=== PATIENT | male | born 1980 | race Caucasian/White ===

== ENCOUNTER 2022-02-27 18:19 | Inpatient (IN) | payer MEDICAID, OTHER ==
[~2022-02-27] VITALS: Ht 172.7 cm; Wt 69.0 kg
[2022-02-27] MEDS ORDERED: SODIUM CHLORIDE 0.9% 1,000 ML IV ONE (18:30)
[2022-02-27] MEDS ORDERED: LevETIRAcetam 1,000 MG in DEXTROSE 5%-WATER 100 ML IV ONE (18:30)
[2022-02-27 18:38] LABS: ABG BASE EXCESS -15.9 mmol/L (-2.0-3.0); ABG CARBOXYHEMOGLOBIN 0.2 % (0.0-1.5); ABG HCO3 12.8 mmol/L (22.0-26.0); ABG METHEMOGLOBIN 0.3 % (0.0-1.5); ABG OXYGEN CONTENT 22.4 mL/dL (15.0-23.0); ABG OXYGEN SATURATION 98.2 % (95.0-98.0); ABG OXYHEMOGLOBIN 97.7 % (94.0-100.0); ABG PCO2 51 mmHg (35-45); ABG PH 7.067 (7.35-7.450); ABG TOTAL HEMOGLOBIN 16.1 G/dL (12.0-18.0); PO2, ARTERIAL BG 159.8 mmHg (88.0-96.0); SITE, BLOOD GAS RT RADIAL; SOURCE, BLOOD GAS ARTERIAL; TEMPERATURE, FAHRENHEIT, BG 98.6 FAHREN (96.0-98.6)
[2022-02-27 18:39] LABS: PEEP,BG 5 cm H2O; VT, ABG 400 ml
[2022-02-27] MEDS: PROPOFOL 1000 MG/ISO-OSM 100 ML IV PRN ×2 (18:45→19:00)
[2022-02-27 18:53] LABS: COVID AG,FIA SOURCE NASOPHARYNGEAL
[2022-02-27 18:54] LABS: BASOPHILS % (AUTO) 0.6 % (0.0-2.0); EOSINOPHILS % (AUTO) 0.1 % (1.0-6.0); HEMATOCRIT 48.2 % (41-53); HEMOGLOBIN 16.2 g/dL (13.5-17.5); LYMPHOCYTES # (AUTO) 1.1 K/uL (1.0-4.8); LYMPHOCYTES % (AUTO) 7.1 % (22.0-44.0); MEAN CORPUSCULAR HEMOGLOBIN 29.7 pg (26.0-34.0); MEAN CORPUSCULAR HGB CONC 33.6 G/dL (31.0-37.0); MEAN CORPUSCULAR VOLUME 89 fL (80-100); MONOCYTES # (AUTO) 0.4 K/uL (0.1-1.0); MONOCYTES % (AUTO) 2.6 % (2.0-9.0); NEUTROPHILS # (AUTO) 13.9 K/uL (1.8-7.7); PLATELET COUNT (AUTO) 396 K/uL (150-450); RED BLOOD CELL COUNT(AUTO) 5.45 MIL/uL (4.50-5.90); RED CELL DISTRIBUTION WIDTH 13.5 % (11.5-14.5)
[2022-02-27 19:00] LABS: APPEARANCE,URINE CLEAR (CLEAR); BILIRUBIN,URINE NEGATIVE (NEGATIVE); GLUCOSE, URINE (UA) >=1000 mg/dL (NEGATIVE); KETONES,URINE 40-60 mg/dL (NEGATIVE); LEUKOCYTE ESTERASE ,URINE NEGATIVE (NEGATIVE); NITRATE,URINE NEGATIVE (NEGATIVE); OCCULT BLOOD,URINE NEGATIVE (NEGATIVE); PROTEIN,URINE NEGATIVE (NEGATIVE); SPECIFIC GRAVITIY, URINE 1.029 (1.003-1.030); UROBILINOGEN,URINE <=1.0 mg/dL (<=1.0)
[2022-02-27 19:05] LABS: PROTHROMBIN TIME 10.3 SEC (9.4-11.6)
[2022-02-27 19:07] LABS: AMPHET/METH SCREEN,URINE POSITIVE (NEGATIVE); BACTERIA,URINE None Seen /HPF (None Seen); BARBITURATE SCREEN, URINE NEGATIVE (NEGATIVE); BENZODIAZEPINES SCREEN,URINE NEGATIVE (NEGATIVE); CANNABINOID SCREEN,URINE NEGATIVE (NEGATIVE); COCAINE SCREEN,URINE NEGATIVE (NEGATIVE); METHADONE SCREEN, URINE NEGATIVE (NEGATIVE); OPIATE SCREEN,URINE NEGATIVE (NEGATIVE); RBC,URINE 0-2 /HPF (0-2); SQUAMOUS EPITHELIAL CELL,UR Rare /LPF (None Seen); WBC,URINE 0-2 /HPF (0-5)
[2022-02-27 19:09] LABS: PHENCYCLIDINE SCREEN,URINE NEGATIVE (NEGATIVE)
[2022-02-27 19:10] LABS: NEUTROPHILS % (AUTO) 89.6 % (40.0-70.0)
[2022-02-27 19:12] LABS: PLATELET MORPHOLOGY COMMENT LARGE PLTS PRESENT
[2022-02-27] MEDS ORDERED: ROCURONIUM BROMIDE 10 MG/ML 5 ML VIAL IVP ONE (19:15)
[2022-02-27] MEDS ORDERED: ETOMIDATE 2 MG/ML 10 ML VIAL IVP ONE (19:15)
[2022-02-27] MEDS ORDERED: PIPERACILLIN SODIUM/TAZOBACTAM 4.5 GM in DEXTROSE 5%-WATER 100 ML IV ONE (19:15)
[2022-02-27 19:20] LABS: ACETONE,BLOOD 1:16 (NEGATIVE)
[2022-02-27 19:21] LABS: B-TYPE NATRIURETIC PEPTIDE 13 pg/mL (0-100)
[2022-02-27 19:26] LABS: ALANINE AMINOTRANSFERASE 31 U/L (12-78); ALBUMIN 3.5 g/dL (3.4-5.0); ALKALINE PHOSPHATASE 155 U/L (46-116); ANION GAP 20 mmol/L (8-16); ASPARTATE AMINOTRANSFERASE 14 U/L (15-37); BILIRUBIN,TOTAL 0.3 mg/dL (0.1-1.0); CALCIUM, TOTAL 9.3 mg/dL (8.8-10.5); CARBON DIOXIDE 17 mmol/L (22-29); CHLORIDE 97 mmol/L (98-107); CREATINE KINASE, TOTAL ONLY 128 U/L (39-308); POTASSIUM 5.5 mmol/L (3.5-5.1); SODIUM SERUM 134 mmol/L (136-145); TOTAL PROTEIN, SERUM 8.1 g/dL (6.4-8.2); UREA NITROGEN, BLOOD 22 mg/dL (7-18)
[2022-02-27 19:30] LABS: GLOMERULAR FILTR. RATE CALC > 60 mL/min (>60); GLUCOSE,RANDOM 717 mg/dL (70-110)
[2022-02-27] MEDS ORDERED: DEXTROSE 50%-WATER 25 GM/50 ML SYRINGE IVP PRN ×2 (19:30→20:00)
[2022-02-27] MEDS ORDERED: DEXTROSE 5%-0.45% SODIUM CHL 1,000 ML IV PRN (19:30)
[2022-02-27] MEDS ORDERED: MIDAZOLAM HCL 100 MG in SODIUM CHLORIDE 0.9% 180 ML IV PRN (19:30)
[2022-02-27] MEDS ORDERED: POTASSIUM CHLORIDE 40 MEQ in SODIUM CHLORIDE 0.45% 1,000 ML IV PRN ×2 (19:30→20:00)
[2022-02-27] MEDS ORDERED: POTASSIUM CHL 20 MEQ/0.45% NS 1,000 ML IV PRN ×2 (19:30→20:00)
[2022-02-27] MEDS ORDERED: SODIUM CHLORIDE 0.45% 1,000 ML IV PRN ×2 (19:30→20:00)
[2022-02-27] MEDS ORDERED: INSULIN REGULAR, HUMAN 100 UNITS/ML IVP PRN ×2 (19:30→20:00)
[2022-02-27] MEDS ORDERED: SODIUM CHLORIDE 0.9% 1,000 ML IV SCH (19:30)
[2022-02-27] MEDS ORDERED: INSULIN REGULAR, HUMAN 100 UNITS/ML IVP ONE ×2 (19:30→20:00)
[2022-02-27] MEDS ORDERED: INSULIN REGULAR, HUMAN 100 UNITS in SODIUM CHLORIDE 0.9% 99 ML IV PRN ×4 (19:30→20:00)
[2022-02-27 19:44] LABS: AMMONIA 22 umol/L (11-32)
[2022-02-27] MEDS: SODIUM CHLORIDE 0.9% 1,000 ML IV SCH (20:00)
[2022-02-27] MEDS ORDERED: MIDAZOLAM HCL 5 MG/ML VIAL IVP ONE (20:00)
[2022-02-27 20:37] LABS: BASOPHILS % (AUTO) 0.3 % (0.0-2.0); EOSINOPHILS % (AUTO) 0.1 % (1.0-6.0); HEMATOCRIT 41.2 % (41-53); HEMOGLOBIN 13.8 g/dL (13.5-17.5); LYMPHOCYTES % (AUTO) 4.8 % (22.0-44.0); MEAN CORPUSCULAR HEMOGLOBIN 29.2 pg (26.0-34.0); MEAN CORPUSCULAR HGB CONC 33.4 G/dL (31.0-37.0); MEAN CORPUSCULAR VOLUME 87 fL (80-100); MONOCYTES # (AUTO) 0.7 K/uL (0.1-1.0); MONOCYTES % (AUTO) 3.3 % (2.0-9.0); NEUTROPHILS # (AUTO) 18.5 K/uL (1.8-7.7); PLATELET COUNT (AUTO) 426 K/uL (150-450); RED BLOOD CELL COUNT(AUTO) 4.72 MIL/uL (4.50-5.90); RED CELL DISTRIBUTION WIDTH 13.6 % (11.5-14.5)
[2022-02-27 20:39] LABS: NEUTROPHILS % (AUTO) 91.5 % (40.0-70.0)
[2022-02-27] MEDS ORDERED: CHLORHEXIDINE GLUCONATE 0.12% 15 ML UDCUP ORAL RINSE MM SCH (21:00)
[2022-02-27 21:01] LABS: GLUCOSE,POINT OF CARE 434 MG/DL (70-110)
[2022-02-27 21:03] LABS: ANION GAP 20 mmol/L (8-16); CALCIUM, TOTAL 10.2 mg/dL (8.8-10.5); CARBON DIOXIDE 17 mmol/L (22-29); CHLORIDE 100 mmol/L (98-107); CREATININE 1.17 mg/dL (0.60-1.30); PHOSPHORUS 4.9 mg/dL (2.5-4.9); POTASSIUM 4.6 mmol/L (3.5-5.1); SODIUM SERUM 137 mmol/L (136-145); UREA NITROGEN, BLOOD 22 mg/dL (7-18)
[2022-02-27 21:05] LABS: GLOMERULAR FILTR. RATE CALC > 60 mL/min (>60); GLUCOSE,RANDOM 541 mg/dL (70-110)
[2022-02-27] MEDS ORDERED: PHENYLEPHRINE 200 MG/D5%-WATER 250 ML IV PRN (21:30)
[2022-02-27] MEDS ORDERED: IOHEXOL 350 MG/ML 100 ML VIAL ONE (21:30)
[2022-02-27] MEDS ORDERED: SODIUM CHLORIDE 0.9% 100 ML ONE (21:30)
[2022-02-27 21:35] LABS: ABG BASE EXCESS -11.6 mmol/L (-2.0-3.0); ABG CARBOXYHEMOGLOBIN 0.3 % (0.0-1.5); ABG HCO3 16.5 mmol/L (22.0-26.0); ABG METHEMOGLOBIN 0.1 % (0.0-1.5); ABG OXYGEN CONTENT 20.4 mL/dL (15.0-23.0); ABG OXYGEN SATURATION 95.5 % (95.0-98.0); ABG OXYHEMOGLOBIN 95.1 % (94.0-100.0); ABG PCO2 31 mmHg (35-45); ABG PH 7.299 (7.35-7.450); ABG TOTAL HEMOGLOBIN 15.2 G/dL (12.0-18.0); PO2, ARTERIAL BG 85.1 mmHg (88.0-96.0); SOURCE, BLOOD GAS ARTERIAL; TEMPERATURE, FAHRENHEIT, BG 98.6 FAHREN (96.0-98.6)
[2022-02-27 21:36] LABS: O2 DEVICE,BLOOD GAS VENTILATOR (ROOM AIR); PEEP,BG 5 cm H2O; SITE, BLOOD GAS RT FEMORAL; VT, ABG 400 ml
[2022-02-27] MEDS ORDERED: PHENYLEPHRINE HCL IN 0.9% NACL 400 MCG/10 ML SYRINGE IVP ONE ×2 (21:44→22:00)
[2022-02-27] MEDS: ACETAMINOPHEN 325 MG TABLET PO PRN (21:45)
[2022-02-27 21:57] LABS: LACTIC ACID 3.1 mmol/L (0.4-2.0)
[2022-02-27] MEDS: DEXTROSE 5%-0.45% SODIUM CHL 1,000 ML IV PRN ×2 (22:35→23:46)
[2022-02-27 23:50] LABS: GLUCOSE,POINT OF CARE 183 MG/DL (70-110)
[2022-02-27 23:50] LABS: GLUCOSE,POINT OF CARE 157 MG/DL (70-110)
[2022-02-28 00:46] LABS: GLUCOSE,POINT OF CARE 111 MG/DL (70-110)
[2022-02-28] MEDS: DEXTROSE 5%-0.45% SODIUM CHL 1,000 ML IV PRN (00:50)
[2022-02-28 00:58] LABS: ANION GAP 12 mmol/L (8-16); CALCIUM, TOTAL 9.7 mg/dL (8.8-10.5); CARBON DIOXIDE 22 mmol/L (22-29); CHLORIDE 109 mmol/L (98-107); GLOMERULAR FILTR. RATE CALC > 60 mL/min (>60); GLUCOSE,RANDOM 95 mg/dL (70-110); POTASSIUM 3.3 mmol/L (3.5-5.1); SODIUM SERUM 143 mmol/L (136-145); UREA NITROGEN, BLOOD 21 mg/dL (7-18)
[2022-02-28] MEDS: SODIUM CHLORIDE 0.9% 1,000 ML IV SCH ×3 (01:24→17:55)
[2022-02-28] MEDS ORDERED: DEXMEDETOMIDINE HCL 400 MCG in SODIUM CHLORIDE 0.9% 96 ML IV PRN (02:00)
[2022-02-28] MEDS ORDERED: INSULIN GLARGINE,HUM.REC.ANLOG 100 UNITS/ML SQ ONE (02:00)
[2022-02-28] MEDS ORDERED: DEXTROSE 50%-WATER 25 GM/50 ML SYRINGE IVP PRN (02:00)
[2022-02-28] MEDS ORDERED: RINGERS SOLUTION,LACTATED 1,000 ML IV SCH (02:00)
[2022-02-28 03:36] LABS: GLUCOSE,POINT OF CARE 82 MG/DL (70-110)
[2022-02-28 03:36] LABS: GLUCOSE,POINT OF CARE 90 MG/DL (70-110)
[2022-02-28] MEDS: PIPERACILLIN/TAZO 3.375 GM/D5W 50 ML IV SCH ×4 (03:38→21:48)
[2022-02-28 05:00] VITALS: BP 118/78
[2022-02-28] MEDS: INSULIN LISPRO 100 UNITS/ML SQ PRN ×3 (05:48→17:11)
[2022-02-28 06:05] LABS: ALANINE AMINOTRANSFERASE 26 U/L (12-78); ALBUMIN 2.9 g/dL (3.4-5.0); ALKALINE PHOSPHATASE 96 U/L (46-116); ANION GAP 12 mmol/L (8-16); ASPARTATE AMINOTRANSFERASE 18 U/L (15-37); BILIRUBIN,TOTAL 0.5 mg/dL (0.1-1.0); CALCIUM, TOTAL 9.7 mg/dL (8.8-10.5); CARBON DIOXIDE 22 mmol/L (22-29); CHLORIDE 109 mmol/L (98-107); CREATININE 1.08 mg/dL (0.60-1.30); GLUCOSE,RANDOM 168 mg/dL (70-110); PHOSPHORUS 3.6 mg/dL (2.5-4.9); POTASSIUM 3.6 mmol/L (3.5-5.1); SODIUM SERUM 143 mmol/L (136-145); TOTAL PROTEIN, SERUM 6.9 g/dL (6.4-8.2); UREA NITROGEN, BLOOD 19 mg/dL (7-18)
[2022-02-28 06:06] LABS: GLUCOSE,POINT OF CARE 136 MG/DL (70-110)
[2022-02-28 06:06] LABS: GLOMERULAR FILTR. RATE CALC > 60 mL/min (>60)
[2022-02-28 08:00] VITALS: BP 113/74
[2022-02-28] MEDS ORDERED: MIDAZOLAM HCL 100 MG in SODIUM CHLORIDE 0.9% 180 ML IV PRN (08:30)
[2022-02-28] MEDS ORDERED: PHENYLEPHRINE 200 MG/D5%-WATER 250 ML IV PRN (08:30)
[2022-02-28] MEDS: HEPARIN SODIUM,PORCINE 5,000 UNITS/ML VIAL SQ SCH ×2 (08:51→16:04)
[2022-02-28] MEDS: PANTOPRAZOLE SODIUM 40 MG/VIAL IVP SCH (08:51)
[2022-02-28] MEDS ORDERED: SODIUM CHLORIDE 0.9% 250 ML IV ONE (09:06)
[2022-02-28 10:15] LABS: ABG BASE EXCESS -4.5 mmol/L (-2.0-3.0); ABG CARBOXYHEMOGLOBIN 0.9 % (0.0-1.5); ABG HCO3 21.5 mmol/L (22.0-26.0); ABG METHEMOGLOBIN 0.3 % (0.0-1.5); ABG OXYGEN CONTENT 19.9 mL/dL (15.0-23.0); ABG OXYGEN SATURATION 97.2 % (95.0-98.0); ABG PCO2 35 mmHg (35-45); ABG PH 7.388 (7.35-7.450); ABG TOTAL HEMOGLOBIN 14.7 G/dL (12.0-18.0); PO2, ARTERIAL BG 92.9 mmHg (88.0-96.0); SOURCE, BLOOD GAS ARTERIAL; TEMPERATURE, FAHRENHEIT, BG 100.3 FAHREN (96.0-98.6)
[2022-02-28 10:16] LABS: ABG A-A DIFF O2 115.4 mmHg (10-20.0); O2 DEVICE,BLOOD GAS VENTILATOR (ROOM AIR); PEEP,BG 5 cm H2O; SITE, BLOOD GAS LFT RADIAL; VT, ABG 400 ml
[2022-02-28 12:00] VITALS: BP 98/62
[2022-02-28 12:21] LABS: GLUCOSE,POINT OF CARE 144 MG/DL (70-110)
[2022-02-28] MEDS: ACETAMINOPHEN 325 MG TABLET PO PRN (12:30)
[2022-02-28 13:06] LABS: GLUCOSE,POINT OF CARE 141 MG/DL (70-110)
[2022-02-28] MEDS: DEXMEDETOMIDINE HCL 400 MCG in SODIUM CHLORIDE 0.9% 96 ML IV PRN (14:15)
[2022-02-28 16:00] VITALS: BP 101/67
[2022-02-28 18:11] LABS: GLUCOSE,POINT OF CARE 128 MG/DL (70-110)
[2022-02-28 20:00] VITALS: BP 129/93
[2022-03-01] VITALS: BP 120/84
[2022-03-01] MEDS: HEPARIN SODIUM,PORCINE 5,000 UNITS/ML VIAL SQ SCH ×4 (00:12→23:44)
[2022-03-01] MEDS: ACETAMINOPHEN 325 MG TABLET PO PRN (00:13)
[2022-03-01] MEDS: INSULIN LISPRO 100 UNITS/ML SQ PRN ×2 (00:14→06:09)
[2022-03-01] MEDS: DEXMEDETOMIDINE HCL 400 MCG in SODIUM CHLORIDE 0.9% 96 ML IV PRN (02:38)
[2022-03-01] MEDS: PIPERACILLIN/TAZO 3.375 GM/D5W 50 ML IV SCH ×4 (03:55→23:02)
[2022-03-01] MEDS: SODIUM CHLORIDE 0.9% 1,000 ML IV SCH ×2 (03:55→13:53)
[2022-03-01 04:00] VITALS: BP 111/74
[2022-03-01 06:14] LABS: BASOPHILS % (AUTO) 0.7 % (0.0-2.0); EOSINOPHILS % (AUTO) 0.4 % (1.0-6.0); HEMATOCRIT 41.2 % (41-53); HEMOGLOBIN 13.9 g/dL (13.5-17.5); LYMPHOCYTES % (AUTO) 13.3 % (22.0-44.0); MEAN CORPUSCULAR HGB CONC 33.7 G/dL (31.0-37.0); MEAN CORPUSCULAR VOLUME 86 fL (80-100); MONOCYTES # (AUTO) 0.8 K/uL (0.1-1.0); MONOCYTES % (AUTO) 5.5 % (2.0-9.0); NEUTROPHILS # (AUTO) 12.2 K/uL (1.8-7.7); NEUTROPHILS % (AUTO) 80.1 % (40.0-70.0); PLATELET COUNT (AUTO) 289 K/uL (150-450); RED BLOOD CELL COUNT(AUTO) 4.79 MIL/uL (4.50-5.90); RED CELL DISTRIBUTION WIDTH 13.7 % (11.5-14.5)
[2022-03-01 06:22] LABS: ALANINE AMINOTRANSFERASE 40 U/L (12-78); ALBUMIN 2.1 g/dL (3.4-5.0); ALKALINE PHOSPHATASE 76 U/L (46-116); ANION GAP 7 mmol/L (8-16); ASPARTATE AMINOTRANSFERASE 61 U/L (15-37); BILIRUBIN,TOTAL 0.5 mg/dL (0.1-1.0); CALCIUM, TOTAL 9.2 mg/dL (8.8-10.5); CARBON DIOXIDE 27 mmol/L (22-29); CHLORIDE 112 mmol/L (98-107); CREATININE 0.78 mg/dL (0.60-1.30); GLUCOSE,RANDOM 172 mg/dL (70-110); POTASSIUM 3.1 mmol/L (3.5-5.1); SODIUM SERUM 146 mmol/L (136-145); TOTAL PROTEIN, SERUM 6.6 g/dL (6.4-8.2); UREA NITROGEN, BLOOD 13 mg/dL (7-18)
[2022-03-01 06:23] LABS: GLOMERULAR FILTR. RATE CALC > 60 mL/min (>60)
[2022-03-01 07:31] LABS: GLUCOSE,POINT OF CARE 158 MG/DL (70-110)
[2022-03-01 07:31] LABS: GLUCOSE,POINT OF CARE 203 MG/DL (70-110)
[2022-03-01 08:00] VITALS: BP 120/73
[2022-03-01] MEDS: PANTOPRAZOLE SODIUM 40 MG/VIAL IVP SCH (08:23)
[2022-03-01] MEDS: INSULIN GLARGINE,HUM.REC.ANLOG 100 UNITS/ML SQ SCH ×2 (08:25→21:17)
[2022-03-01 12:00] VITALS: BP 112/78
[2022-03-01 13:56] LABS: GLUCOSE,POINT OF CARE 151 MG/DL (70-110)
[2022-03-01 14:59] LABS: ABG BASE EXCESS 1.7 mmol/L (-2.0-3.0); ABG CARBOXYHEMOGLOBIN 0.5 % (0.0-1.5); ABG HCO3 26.2 mmol/L (22.0-26.0); ABG METHEMOGLOBIN 0.1 % (0.0-1.5); ABG OXYGEN CONTENT 19.5 mL/dL (15.0-23.0); ABG OXYGEN SATURATION 96.2 % (95.0-98.0); ABG OXYHEMOGLOBIN 95.6 % (94.0-100.0); ABG PCO2 36 mmHg (35-45); ABG PH 7.465 (7.35-7.450); ABG TOTAL HEMOGLOBIN 14.5 G/dL (12.0-18.0); PO2, ARTERIAL BG 75.9 mmHg (88.0-96.0); SOURCE, BLOOD GAS ARTERIAL; TEMPERATURE, FAHRENHEIT, BG 98.6 FAHREN (96.0-98.6)
[2022-03-01 15:00] LABS: ABG A-A DIFF O2 131.6 mmHg (10-20.0); O2 DEVICE,BLOOD GAS VENTILATOR (ROOM AIR); PEEP,BG 0 cm H2O; SITE, BLOOD GAS LFT RADIAL; SPONTANEOUS VT, BG 450 ml; VENT MODE, BG CPAP (ROOM AIR)
[2022-03-01 15:01] LABS: PRESSURE SUPPORT, BG 8 cm H2O
[2022-03-01 16:00] VITALS: BP 105/72
[2022-03-01] MEDS: DEXTROSE 5%-0.45% SODIUM CHL 1,000 ML IV SCH (18:39)
[2022-03-01 20:00] VITALS: BP 115/79
[2022-03-01 22:01] LABS: GLUCOSE,POINT OF CARE 116 MG/DL (70-110)
[2022-03-02] VITALS (7 sets, daily range): BP systolic 116–132; BP diastolic 75–84
[2022-03-02] MEDS: POTASSIUM CHL 10 MEQ/WATER 50 ML IV PRN ×11 (01:21→21:51)
[2022-03-02 01:41] LABS: GLUCOSE,POINT OF CARE 77 MG/DL (70-110)
[2022-03-02] MEDS ORDERED: SODIUM CHLORIDE 0.9% 250 ML IV ONE ×2 (04:00→16:21)
[2022-03-02] MEDS: DEXTROSE 5%-0.45% SODIUM CHL 1,000 ML IV SCH (04:31)
[2022-03-02 05:18] LABS: BASOPHILS % (AUTO) 0.8 % (0.0-2.0); EOSINOPHILS % (AUTO) 0.5 % (1.0-6.0); HEMATOCRIT 40.3 % (41-53); HEMOGLOBIN 14.1 g/dL (13.5-17.5); LYMPHOCYTES # (AUTO) 2.1 K/uL (1.0-4.8); LYMPHOCYTES % (AUTO) 14.6 % (22.0-44.0); MEAN CORPUSCULAR HEMOGLOBIN 29.4 pg (26.0-34.0); MEAN CORPUSCULAR HGB CONC 34.8 G/dL (31.0-37.0); MEAN CORPUSCULAR VOLUME 85 fL (80-100); MONOCYTES # (AUTO) 0.9 K/uL (0.1-1.0); MONOCYTES % (AUTO) 6.7 % (2.0-9.0); NEUTROPHILS # (AUTO) 10.8 K/uL (1.8-7.7); NEUTROPHILS % (AUTO) 77.4 % (40.0-70.0); PLATELET COUNT (AUTO) 286 K/uL (150-450); RED BLOOD CELL COUNT(AUTO) 4.78 MIL/uL (4.50-5.90); RED CELL DISTRIBUTION WIDTH 13.5 % (11.5-14.5)
[2022-03-02] MEDS: PIPERACILLIN/TAZO 3.375 GM/D5W 50 ML IV SCH ×4 (05:21→22:39)
[2022-03-02 05:45] LABS: ALANINE AMINOTRANSFERASE 40 U/L (12-78); ALBUMIN 2.1 g/dL (3.4-5.0); ALKALINE PHOSPHATASE 79 U/L (46-116); ANION GAP 7 mmol/L (8-16); ASPARTATE AMINOTRANSFERASE 54 U/L (15-37); BILIRUBIN,TOTAL 0.4 mg/dL (0.1-1.0); CARBON DIOXIDE 28 mmol/L (22-29); CHLORIDE 105 mmol/L (98-107); GLUCOSE,RANDOM 80 mg/dL (70-110); SODIUM SERUM 140 mmol/L (136-145); TOTAL PROTEIN, SERUM 6.7 g/dL (6.4-8.2); UREA NITROGEN, BLOOD 7 mg/dL (7-18)
[2022-03-02 06:03] LABS: GLOMERULAR FILTR. RATE CALC > 60 mL/min (>60); POTASSIUM 2.7 mmol/L (3.5-5.1)
[2022-03-02] MEDS: INSULIN LISPRO 100 UNITS/ML SQ PRN ×2 (06:19→12:10)
[2022-03-02 08:11] LABS: GLUCOSE,POINT OF CARE 299 MG/DL (70-110)
[2022-03-02] MEDS: HEPARIN SODIUM,PORCINE 5,000 UNITS/ML VIAL SQ SCH ×2 (08:55→16:09)
[2022-03-02] MEDS: PANTOPRAZOLE SODIUM 40 MG/VIAL IVP SCH (08:55)
[2022-03-02] MEDS: INSULIN GLARGINE,HUM.REC.ANLOG 100 UNITS/ML SQ SCH ×2 (08:57→21:38)
[2022-03-02 09:25] LABS: GLUCOSE,POINT OF CARE 130 MG/DL (70-110)
[2022-03-02 12:16] LABS: GLUCOSE,POINT OF CARE 257 MG/DL (70-110)
[2022-03-02 13:56] LABS: POTASSIUM 2.8 mmol/L (3.5-5.1)
[2022-03-02 15:25] LABS: MAGNESIUM 1.4 mg/dL (1.80-2.40)
[2022-03-02] MEDS ORDERED: MAGNESIUM OXIDE 400 MG TABLET PO PRN (15:45)
[2022-03-02] MEDS ORDERED: MAGNESIUM SULFATE 4 GM/WATER 100 ML IV PRN (15:45)
[2022-03-02] MEDS ORDERED: MAGNESIUM SULFATE 2 GM/WATER 50 ML IV PRN (15:45)
[2022-03-03] MEDS: HEPARIN SODIUM,PORCINE 5,000 UNITS/ML VIAL SQ SCH ×3 (00:13→16:18)
[2022-03-03 00:44] VITALS: BP 115/76
[2022-03-03] MEDS: INSULIN LISPRO 100 UNITS/ML SQ PRN ×5 (03:27→21:12)
[2022-03-03] MEDS: PIPERACILLIN/TAZO 3.375 GM/D5W 50 ML IV SCH ×4 (03:28→22:15)
[2022-03-03 03:37] LABS: GLUCOMETER DEV NAME(LOC) 5S.1B; GLUCOSE,POINT OF CARE 217 MG/DL (70-110)
[2022-03-03 06:11] LABS: BASOPHILS % (AUTO) 0.5 % (0.0-2.0); HEMATOCRIT 36.3 % (41-53); HEMOGLOBIN 12.5 g/dL (13.5-17.5); LYMPHOCYTES # (AUTO) 1.7 K/uL (1.0-4.8); LYMPHOCYTES % (AUTO) 19.1 % (22.0-44.0); MEAN CORPUSCULAR HEMOGLOBIN 29.2 pg (26.0-34.0); MEAN CORPUSCULAR HGB CONC 34.4 G/dL (31.0-37.0); MEAN CORPUSCULAR VOLUME 85 fL (80-100); MONOCYTES # (AUTO) 0.6 K/uL (0.1-1.0); MONOCYTES % (AUTO) 6.4 % (2.0-9.0); NEUTROPHILS # (AUTO) 6.6 K/uL (1.8-7.7); PLATELET COUNT (AUTO) 303 K/uL (150-450); RED BLOOD CELL COUNT(AUTO) 4.28 MIL/uL (4.50-5.90); RED CELL DISTRIBUTION WIDTH 13.6 % (11.5-14.5)
[2022-03-03 06:24] LABS: ALANINE AMINOTRANSFERASE 38 U/L (12-78); ALBUMIN 1.8 g/dL (3.4-5.0); ALKALINE PHOSPHATASE 76 U/L (46-116); ANION GAP 8 mmol/L (8-16); ASPARTATE AMINOTRANSFERASE 38 U/L (15-37); BILIRUBIN,TOTAL 0.3 mg/dL (0.1-1.0); CALCIUM, TOTAL 8.8 mg/dL (8.8-10.5); CARBON DIOXIDE 27 mmol/L (22-29); CHLORIDE 104 mmol/L (98-107); GLUCOSE,RANDOM 199 mg/dL (70-110); POTASSIUM 3.1 mmol/L (3.5-5.1); SODIUM SERUM 139 mmol/L (136-145); TOTAL PROTEIN, SERUM 6.1 g/dL (6.4-8.2); UREA NITROGEN, BLOOD 6 mg/dL (7-18)
[2022-03-03 06:26] LABS: GLOMERULAR FILTR. RATE CALC > 60 mL/min (>60)
[2022-03-03 07:03] VITALS: BP 116/77
[2022-03-03] MEDS ORDERED: SODIUM CHLORIDE 0.9% 500 ML IV ONE (08:19)
[2022-03-03 08:31] VITALS: BP 121/72
[2022-03-03] MEDS: PANTOPRAZOLE SODIUM 40 MG/VIAL IVP SCH (10:22)
[2022-03-03] MEDS: INSULIN GLARGINE,HUM.REC.ANLOG 100 UNITS/ML SQ SCH ×2 (10:31→21:13)
[2022-03-03 11:57] VITALS: BP 118/70
[2022-03-03 11:57] LABS: GLUCOMETER DEV NAME(LOC) 5N.1C; GLUCOSE,POINT OF CARE 135 MG/DL (70-110)
[2022-03-03 11:57] LABS: GLUCOMETER DEV NAME(LOC) 5N.1C; GLUCOSE,POINT OF CARE 356 MG/DL (70-110)
[2022-03-03] MEDS: POTASSIUM CHL 10 MEQ/WATER 50 ML IV PRN (12:31)
[2022-03-03] MEDS ORDERED: POTASSIUM CHLORIDE 20 MEQ ER TABLET PO PRN (14:45)
[2022-03-03 14:49] VITALS: BP 119/72
[2022-03-03 19:15] VITALS: BP 116/73
[2022-03-03 21:21] LABS: GLUCOMETER DEV NAME(LOC) 5S.1B; GLUCOSE,POINT OF CARE 238 MG/DL (70-110)
[2022-03-04 00:15] VITALS: BP 116/69
[2022-03-04] MEDS: HEPARIN SODIUM,PORCINE 5,000 UNITS/ML VIAL SQ SCH ×3 (00:20→16:00)
[2022-03-04] MEDS: INSULIN LISPRO 100 UNITS/ML SQ PRN ×3 (01:08→12:33)
[2022-03-04] MEDS: PIPERACILLIN/TAZO 3.375 GM/D5W 50 ML IV SCH ×3 (04:28→16:00)
[2022-03-04 04:35] VITALS: BP 122/74
[2022-03-04 08:12] VITALS: BP 118/81
[2022-03-04] MEDS: PANTOPRAZOLE SODIUM 40 MG/VIAL IVP SCH (09:54)
[2022-03-04] MEDS: INSULIN GLARGINE,HUM.REC.ANLOG 100 UNITS/ML SQ SCH (09:57)
[2022-03-04 11:48] VITALS: BP 115/69
[2022-03-04 12:06] LABS: GLUCOMETER DEV NAME(LOC) 5S.1B; GLUCOSE,POINT OF CARE 255 MG/DL (70-110)
[2022-03-04 16:02] VITALS: BP 106/73
== END 2022-03-04 21:00 | disposition home or self-care (01) | DRG 720 ==
LOC: EMS 18:19 → ICU 02-28 00:09 → 5N 03-02 18:45
PROVIDERS: ADMIT Internal Medicine; ATTEND Internal Medicine
PROC: 5A1945Z Respiratory Ventilation, 24-96 Consecutive Hours (ICD-10-PCS; principal; 2022-02-28)
PROC: 0BH17EZ Insertion of Endotracheal Airway into Trachea, Via Natural or Artificial Opening (ICD-10-PCS; 2022-02-28)
DX: A41.9 Sepsis, unspecified organism (principal); R65.21 Severe sepsis with septic shock; J69.0 Pneumonitis due to inhalation of food and vomit; G92.8 Other toxic encephalopathy; J96.01 Acute respiratory failure with hypoxia; J96.02 Acute respiratory failure with hypercapnia; E10.10 Type 1 diabetes mellitus with ketoacidosis without coma; E87.6 Hypokalemia; F15.10 Other stimulant abuse, uncomplicated; I10 Essential (primary) hypertension; Z20.822 Contact with and (suspected) exposure to COVID-19; Z79.899 Other long term (current) drug therapy
CPT/HCPCS: 36600; 70450; 71045; 72125; 74177; 80048; 80053; 80307; 81001; 82009; 82140; 82550; 82805; 82962; 83605; 83735; 83880; 83930; 84100; 84132; 84145; 84484; 85025; 85610; 85730; 87040; 87070; 87081; 87186; 87205; 92526; 92610; 93005; 93306; 94002; 94003; 97162; 97165; 99291; C9113; G0238; G0378; G0480; J0712; J1644; J1815; J2250; J2370; J2543; J3475; J3480; J7030; J7040; J7050; J7060; J7120; Q9967; 36415-L1; 36415-TC